=== PATIENT | female | born 1950 | race Caucasian/White ===

== ENCOUNTER 2017-06-29 06:00 | Observation (INO) | payer MEDICARE ==
[~2017-06-29] VITALS: Ht 147.3 cm; Wt 100.0 kg
[~2017-06-29 06:00] MED LIST: ADVAIR DISK1 INH; AMLODIPINE5 MG PO; ASPIRIN EC81 MG PO; B COMPLE2 PO; B-121000 MC1 PO; D-3-55000 UNIT PO; MONTELUKAST SOD10 MG PO; MULTI VIT PO; PANTOPRAZOLE SO40 MG PO; PROAIR HFA IN; SIMVASTATIN20 MG PO; TRAMADOL HCL50 MG PO; VITAMIN C1000 MG PO
[2017-06-29 06:57] LABS: HEMATOCRIT 43.3 % (37.0-47.0); HEMOGLOBIN 14.6 g/dl (12.0-16.0); IMMATURE GRANULOCYTES 0.3 % (0.0-1.0); MEAN CELL VOLUME 92.9 fL CALC (80.0-100.0); MEAN CORPUSCULAR HGB 31.3 pG CALC (26.0-32.0); MEAN CORPUSCULAR HGB CONC 33.7 g/L CALC (32.0-36.0); NEUT# 9.65 thou/uL (2.00-7.15); RED BLOOD COUNT 4.66 mill/uL (4.20-5.60)
[2017-06-29 07:10] LABS: ALBUMIN 4.2 g/dL (3.2-5.0); ALKALINE PHOSPHATASE 145 u/l (38-126); ANION GAP 13 (6-22 (CALC)); BILIRUBIN, TOTAL 1.3 mg/dL (0.0-1.4); BUN 11 mg/dL (8-23); BUN/CREATININE RATIO 28 (12-20 (CALC)); CALCIUM 9.4 mg/dL (8.4-10.2); CARBON DIOXIDE 28 mmol/l (22-30); CHLORIDE 103 mmol/l (95-108); CREATININE 0.4 mg/dL (0.5-1.0); GFR > 60 ML/MIN (>=60 (CALC)); GFR FOR AFR.AMER. > 60 ML/MIN (>=60 (CALC)); GLUCOSE 99 mg/dL (82-115); SGOT/AST 41 u/l (9-36); SGPT/ALT 82 u/l (11-66); SODIUM 140 mmol/l (137-146); TOTAL PROTEIN 7.6 g/dL (6.3-8.2)
[2017-06-29 07:22] LABS: MYOGLOBIN 20 ng/mL (0 - 62)
[2017-06-29 08:01] LABS: INFLUENZA A NONE DETECTED (NONE DETECT); INFLUENZA B NONE DETECTED (NONE DETECT)
[2017-06-29 09:22] LABS: URINE BILIRUBIN - DIPSTICK NEGATIVE (NEGATIVE); URINE BLOOD DIPSTICK NEGATIVE (NEGATIVE); URINE CLARITY CLEAR; URINE COLOR YELLOW; URINE GLUCOSE - DIPSTICK NEGATIVE (NEGATIVE); URINE KETONE NEGATIVE (NEGATIVE); URINE LEUK ESTERASE NEGATIVE (NEGATIVE); URINE NITRITE - DIPSTICK NEGATIVE (Negative); URINE PROTEIN - DIPSTICK NEGATIVE (NEG-TRACE); URINE UROBILINOGEN - DIPSTICK 0.2 E.U./dL (0.2)
[2017-06-29] MEDS ORDERED: VENTOLIN HFA IN (09:30)
[2017-06-29] MEDS ORDERED: SYMBICORT1 AE1 IN (09:31)
[2017-06-29] MEDS ORDERED: RANITIDINE150 M1 PO (11:03)
[2017-06-29 16:40] VITALS: BP 141/78
[2017-06-29 19:05] VITALS: BP 157/65
[2017-06-29 23:10] VITALS: BP 148/68
[2017-06-30 03:52] VITALS: BP 147/85
[2017-06-30 07:54] VITALS: BP 141/89
[2017-06-30] MEDS ORDERED: FIORICET PO (10:26)
[2017-06-30 11:15] VITALS: BP 122/78
[2017-06-30] MEDS ORDERED: ZPAK PO (11:45)
[2017-06-30] MEDS ORDERED: MEDDOSEPAK PO (11:45)
[2017-06-30] MEDS ORDERED: PROAIR HFA IN (11:46)
== END 2017-06-30 12:24 | disposition home or self-care (01) ==
LOC: ED 06:00 → ED-I 08:58 → ED 09:04 → MS2 09:22
PROVIDERS: Emergency Medicine; ADMIT Internal Medicine; ATTEND Internal Medicine
DX: J45.31 Mild persistent asthma with (acute) exacerbation (principal); J43.9 Emphysema, unspecified; I25.10 Atherosclerotic heart disease of native coronary artery without angina pectoris; I10 Essential (primary) hypertension; M15.9 Polyosteoarthritis, unspecified; T75.89XA Other specified effects of external causes, initial encounter; Y92.099 Unspecified place in other non-institutional residence as the place of occurrence of the external cause; R51 Headache; R10.13 Epigastric pain; Z95.5 Presence of coronary angioplasty implant and graft; Z98.84 Bariatric surgery status; R06.02 Shortness of breath

== ENCOUNTER 2017-12-09 16:27 | Emergency (ER) | payer MEDICARE ==
[~2017-12-09] VITALS: Ht 147.3 cm; Wt 95.0 kg
[~2017-12-09 16:27] MED LIST changes: +FIORICET PO; +MEDDOSEPAK PO; +RANITIDINE150 M1 PO; +SYMBICORT1 AE1 IN; +VENTOLIN HFA IN; +ZPAK PO
[2017-12-09 17:15] LABS: IMMATURE GRANULOCYTES 0.3 % (0.0-1.0); MEAN CELL VOLUME 96.6 fL CALC (80.0-100.0); MEAN CORPUSCULAR HGB 31.8 pG CALC (26.0-32.0); NEUT# 6.48 thou/uL (2.00-7.15); RED BLOOD COUNT 3.8 mill/uL (4.20-5.60)
[2017-12-09 17:17] LABS: HEMATOCRIT 36.7 % (37.0-47.0); HEMOGLOBIN 12.1 g/dl (12.0-16.0)
[2017-12-09 17:24] LABS: ALBUMIN 3.7 g/dL (3.2-5.0); AMYLASE 45 u/l (30-110); ANION GAP 14 (6-22 (CALC)); BILIRUBIN, TOTAL 0.4 mg/dL (0.0-1.4); BUN 36 mg/dL (8-23); BUN/CREATININE RATIO 80 (12-20 (CALC)); CARBON DIOXIDE 25 mmol/l (22-30); CHLORIDE 107 mmol/l (95-108); CREATININE 0.5 mg/dL (0.5-1.0); GFR > 60 ML/MIN (>=60 (CALC)); GFR FOR AFR.AMER. > 60 ML/MIN (>=60 (CALC)); LIPASE 32 u/l (23-300); POTASSIUM 4.2 mmol/l (3.5-5.1); SGOT/AST 63 u/l (9-36); SGPT/ALT 22 u/l (11-66); SODIUM 142 mmol/l (137-146); TOTAL PROTEIN 6.2 g/dL (6.3-8.2)
[2017-12-09 17:25] LABS: ALKALINE PHOSPHATASE 68 u/l (38-126)
[2017-12-09 17:36] LABS: MYOGLOBIN 13 ng/mL (0 - 62)
[2017-12-09 18:18] LABS: URINE BILIRUBIN - DIPSTICK NEGATIVE (NEGATIVE); URINE BLOOD DIPSTICK SMALL (NEGATIVE); URINE COLOR YELLOW; URINE GLUCOSE - DIPSTICK NEGATIVE (NEGATIVE); URINE KETONE NEGATIVE (NEGATIVE); URINE LEUK ESTERASE NEGATIVE (NEGATIVE); URINE NITRITE - DIPSTICK NEGATIVE (Negative); URINE PROTEIN - DIPSTICK NEGATIVE (NEG-TRACE); URINE UROBILINOGEN - DIPSTICK 0.2 E.U./dL (0.2)
[2017-12-09 18:22] LABS: URINE CLARITY CLEAR
[2017-12-09 18:29] LABS: URINE SQUAMOUS EPITHELIAL CELL FEW EPI/hpf (0-FEW); URINE WBC 0-2 WBC/hpf (0-5)
[2017-12-09 21:04] VITALS: BP 143/70
== END 2017-12-09 20:30 ==
LOC: ED 16:27
PROVIDERS: Emergency Medicine
DX: K92.2 Gastrointestinal hemorrhage, unspecified (principal); R10.13 Epigastric pain; R10.33 Periumbilical pain; R11.0 Nausea; R42 Dizziness and giddiness; Z98.84 Bariatric surgery status; I25.10 Atherosclerotic heart disease of native coronary artery without angina pectoris; Z95.5 Presence of coronary angioplasty implant and graft
CPT/HCPCS: Q9967; S0164

== ENCOUNTER 2018-10-23 05:42 | Emergency (ER) | payer MEDICARE ==
[~2018-10-23] VITALS: Ht 147.3 cm; Wt 94.0 kg
[2018-10-23] MEDS ORDERED: DEXILANT30 MG PO (05:59)
[2018-10-23 06:40] LABS: IMMATURE GRANULOCYTES 0.6 % (0.0-5.0); MEAN CORPUSCULAR HGB 31.8 pG CALC (26.0-32.0); NEUT# 4.33 thou/uL (2.00-7.15); RED BLOOD COUNT 4.84 mill/uL (4.20-5.60); RED CELL DISTRI WIDTH 15.9 % (11.5-15.5)
[2018-10-23 06:55] LABS: HEMATOCRIT 46.7 % (37.0-47.0); HEMOGLOBIN 15.4 g/dl (12.0-16.0)
[2018-10-23 06:56] LABS: MEAN CELL VOLUME 96.5 fL CALC (80.0-100.0)
[2018-10-23 07:06] LABS: ALBUMIN 4.3 g/dL (3.2-5.0); ALKALINE PHOSPHATASE 73 u/l (38-126); BILIRUBIN, TOTAL 0.9 mg/dL (0.0-1.4); BUN 15 mg/dL (8-23); BUN/CREATININE RATIO 47 (12-20 (CALC)); CARBON DIOXIDE 24 mmol/l (22-30); CHLORIDE 103 mmol/l (95-108); CREATININE 0.3 mg/dL (0.5-1.0); GFR > 60 ML/MIN (>=60 (CALC)); GFR FOR AFR.AMER. > 60 ML/MIN (>=60 (CALC)); SGOT/AST 20 u/l (9-36); SODIUM 140 mmol/l (137-146); TOTAL PROTEIN 7.4 g/dL (6.3-8.2)
[2018-10-23 07:08] LABS: ANION GAP 18 (6-22 (CALC)); POTASSIUM 5.3 mmol/l (3.5-5.1)
[2018-10-23] MEDS ORDERED: DICLOFENAC50 MG PO (08:38)
[2018-10-23] MEDS ORDERED: MEDDOSEPAK PO (08:38)
[2018-10-23 08:54] VITALS: BP 156/77
== END 2018-10-23 09:40 | disposition home or self-care (01) ==
LOC: ED 05:42
PROVIDERS: Emergency Medicine
DX: M77.31 Calcaneal spur, right foot (principal); J43.9 Emphysema, unspecified; M79.604 Pain in right leg

== ENCOUNTER 2020-06-16 12:49 | Emergency (ER) | payer MEDICARE ==
[~2020-06-16] VITALS: Ht 147.3 cm; Wt 110.0 kg
[~2020-06-16 12:49] MED LIST changes: +DEXILANT30 MG PO; +DICLOFENAC50 MG PO
[2020-06-16 14:33] LABS: HEMATOCRIT 42.9 % (37.0-47.0); HEMOGLOBIN 13.1 g/dl (12.0-16.0); IMMATURE GRANULOCYTES 0.3 % (0.0-5.0); MEAN CELL VOLUME 91.5 fL CALC (80.0-100.0); MEAN CORPUSCULAR HGB 27.9 pG CALC (26.0-32.0); MEAN CORPUSCULAR HGB CONC 30.5 g/dL CAL (32.0-36.0); NEUT# 5.7 thou/uL (2.00-7.15); RED BLOOD COUNT 4.69 mill/uL (4.20-5.60); RED CELL DISTRI WIDTH 15.9 % (11.5-15.5)
[2020-06-16 14:55] LABS: ALBUMIN 4.3 g/dL (3.2-5.0); ANION GAP 11 (6-22 (CALC)); BUN 12 mg/dL (8-23); BUN/CREATININE RATIO 31 (12-20 (CALC)); CARBON DIOXIDE 27 mmol/l (22-30); CHLORIDE 101 mmol/l (95-108); CREATININE 0.4 mg/dL (0.5-1.0); GFR > 60 ML/MIN (>=60 (CALC)); GFR FOR AFR.AMER. > 60 ML/MIN (>=60 (CALC)); LIPASE 57 u/l (23-300); SODIUM 136 mmol/l (137-146); TOTAL PROTEIN 7.2 g/dL (6.3-8.2)
[2020-06-16 15:08] LABS: URINE BILIRUBIN - DIPSTICK NEGATIVE (NEGATIVE); URINE BLOOD DIPSTICK NEGATIVE (NEGATIVE); URINE COLOR YELLOW; URINE GLUCOSE - DIPSTICK NEGATIVE (NEGATIVE); URINE KETONE 15 mg/dL (NEGATIVE); URINE LEUK ESTERASE NEGATIVE (NEGATIVE); URINE NITRITE - DIPSTICK NEGATIVE (Negative); URINE PH 6.5 (4.5-8.0); URINE PROTEIN - DIPSTICK NEGATIVE (NEG-TRACE); URINE SPECIFIC GRAVITY 1.015
[2020-06-16 15:10] LABS: ALKALINE PHOSPHATASE 293 u/l (38-126); BILIRUBIN, TOTAL 1.8 mg/dL (0.0-1.4); SGOT/AST 830 u/l (9-36)
[2020-06-16 17:58] VITALS: BP 151/70
== END 2020-06-16 17:58 ==
LOC: ED 12:49
PROVIDERS: Student in an Organized Health Care Education/Training Program
DX: K83.1 Obstruction of bile duct (principal); I25.10 Atherosclerotic heart disease of native coronary artery without angina pectoris; J43.9 Emphysema, unspecified; Z90.49 Acquired absence of other specified parts of digestive tract; Z87.11 Personal history of peptic ulcer disease; Z98.84 Bariatric surgery status
CPT/HCPCS: Q9967; S0164